=== PATIENT | female | born 1955 | race African-American/Black ===

== ENCOUNTER 2016-07-30 11:03 | Emergency (ER) | payer MEDICAID, OTHER ==
[~2016-07-30] VITALS: Ht 180.3 cm; Wt 70.0 kg
[2016-07-30 11:48] VITALS: BP 141/83
== END 2016-07-30 14:31 | disposition home or self-care (01) ==
LOC: ER 11:03
DX: M19.042 Primary osteoarthritis, left hand (principal); I10 Essential (primary) hypertension; M54.30 Sciatica, unspecified side; F17.210 Nicotine dependence, cigarettes, uncomplicated; Z88.6 Allergy status to analgesic agent
CPT/HCPCS: 29125; 73130; 99284

== ENCOUNTER 2016-12-10 21:19 | Emergency (ER) | payer OTHER ==
[~2016-12-10] VITALS: Ht 180.3 cm; Wt 61.0 kg
[2016-12-10 21:55] VITALS: BP 103/79
== END 2016-12-11 03:29 | disposition left against medical advice (07) ==
LOC: ER 21:19
DX: R20.0 Anesthesia of skin (principal); M79.671 Pain in right foot; M79.672 Pain in left foot; Z53.21 Procedure and treatment not carried out due to patient leaving prior to being seen by health care provider